=== PATIENT | female | born 1965 | race Caucasian/White ===

== ENCOUNTER 2021-06-20 15:02 | Emergency (ER) | payer BC ==
[2021-06-20 15:15] VITALS: BP 135/70; PULSE 69; TEMP 99.1; BMI 28.1
[2021-06-20] MEDS ORDERED: IBUPROFEN 600 MG TABLET (FP) PO ONE ×2 (15:41→15:54)
== END 2021-06-20 17:13 | disposition home or self-care (01) ==
LOC: FER 15:02
DX: S52.591A Other fractures of lower end of right radius, initial encounter for closed fracture (principal); Y99.9 Unspecified external cause status
CPT/HCPCS: 73110-TC-RT-FY; 99283-25